=== PATIENT | male | born 1950 | race Caucasian/White ===

== ENCOUNTER 2018-01-19 13:38 | Outpatient (RCR) | payer MEDICARE, OTHER ==
[2018-01-19 13:56] LABS: BASOPHILS % (AUTO) 0 % (0-10); EOSINOPHILS # (AUTO) 0.1 10^3/uL (0.0-0.3); EOSINOPHILS % (AUTO) 1 % (0-10); HEMATOCRIT 43 % (40-54); HEMOGLOBIN 15.7 G/DL (13.3-17.7); LYMPHOCYTES # (AUTO) 2.1 X 10^3 (1.0-4.0); LYMPHOCYTES % (AUTO) 23 % (12-44); MEAN CORPUSCULAR HEMOGLOBIN 32 PG (25-34); MEAN CORPUSCULAR HGB CONC 37 G/DL (32-36); MEAN CORPUSCULAR VOLUME 86 FL (80-99); MEAN PLATELET VOLUME 9.5 FL (7.4-10.4); MONOCYTES % (AUTO) 11 % (0-12); NEUTROPHILS # (AUTO) 6.1 X 10^3 (1.8-7.8); NEUTROPHILS % (AUTO) 65 % (42-75); PLATELET COUNT 260 10^3/uL (130-400); RED BLOOD COUNT 4.99 10^6/uL (4.35-5.85); RED CELL DISTRIBUTION WIDTH 13.2 % (10.0-14.5); WHITE BLOOD COUNT 9.4 10^3/uL (4.3-11.0)
[2018-01-19 14:06] LABS: INR 1.6 (0.8-1.4)
[2018-01-19 14:14] LABS: ALANINE AMINOTRANSFERASE 16 U/L (0-55); ALBUMIN 4.3 GM/DL (3.2-4.5); ALKALINE PHOSPHATASE 68 U/L (40-136); BILIRUBIN,TOTAL 0.7 MG/DL (0.1-1.0); BUN/CREATININE RATIO 13; CALCIUM 9.5 MG/DL (8.5-10.1); CARBON DIOXIDE 28 MMOL/L (21-32); CHLORIDE 92 MMOL/L (98-107); CREATININE SERUM 0.85 MG/DL (0.60-1.30); GFR ESTIMATED > 60; GLUCOSE 88 MG/DL (70-105); POTASSIUM 4.3 MMOL/L (3.6-5.0); SODIUM 127 MMOL/L (135-145); TOTAL PROTEIN 7.3 GM/DL (6.4-8.2)
[2018-04-15] MEDS ORDERED: DILT180C54 PO (08:15)
[2018-04-15] MEDS ORDERED: LOSA100T28 PO (08:15)
[2018-04-15] MEDS ORDERED: METO-351 PO (08:15)
[2018-04-15] MEDS ORDERED: VARE1TAB22 PO (08:15)
[2018-04-15] MEDS ORDERED: CHLO25TA22 PO (08:15)
[2018-04-15] MEDS ORDERED: BIOT10005 PO (08:15)
[2018-04-15] MEDS ORDERED: OMEG-109 PO (08:15)
[2018-04-15] MEDS ORDERED: FINA5TAB6 PO (08:15)
[2018-04-15] MEDS ORDERED: APIX5TAB4 PO (08:15)
== END 2018-04-19 | disposition home or self-care (01) ==
LOC: CARD 13:38
PROVIDERS: ATTEND Physician Assistant
DX: I10 Essential (primary) hypertension (principal); I48.0 Paroxysmal atrial fibrillation; R55 Syncope and collapse; R07.89 Other chest pain
CPT/HCPCS: 36415; 80053; 84443; 85025; 85610; 93225; 93226

== ENCOUNTER → 2018-01-19 | Outpatient (CLI) | payer MEDICARE, OTHER | LOC: CARD 11:13 | PROVIDERS: ATTEND Family Medicine | DX: I48.91 Unspecified atrial fibrillation (principal); I48.92 Unspecified atrial flutter; I34.0 Nonrheumatic mitral (valve) insufficiency; I27.20 Pulmonary hypertension, unspecified | CPT/HCPCS: 93306 ==

== ENCOUNTER → 2018-01-28 | Outpatient (CLI) | payer MEDICARE, OTHER ==
[~2018-01-28] VITALS: Ht 177.8 cm; Wt 78.9 kg
[~2018-01-28] MED LIST: CATHETER FLUSH 10 ML SYR IV PRN; REGADENOSON 0.4 MG/5 ML SYR (LEXISCAN) IV ONE
[2018-01-28 08:23] VITALS: BP 159/101
--- NOTE | 2018-01-31 10:10 | STRESS TEST ---
DATE OF SERVICE: 01/28/2018 LEXISCAN MYOVIEW STRESS TEST REPORT REFERRING PHYSICIAN: Dr. Vizcarra. Baseline heart rate is 79, baseline blood pressure 159/101. Baseline EKG is atrial fibrillation with no ischemic changes. In summary, patient was injected with 10.16 mCi of technetium-99 Myoview and the resting images were obtained. Then, the patient received 0.4 mg of Lexiscan followed by 29.0 mCi of technetium-99 Myoview. Throughout the test, there were no EKG changes. The resting and stress images were reviewed and compared in the short axis, horizontal long axis, and vertical long axis views. Review of the images showed no significant ischemia or infarction. SSS is 1, SDS 1, TID value 1.0. On the gated images, the left ventricle appeared to be in normal size with normal contractility. Calculated ejection fraction 57%. CONCLUSION: 1. The patient tolerated Lexiscan well. 2. Baseline atrial fibrillation persisted throughout test. 3. No significant ischemia or infarction on SPECT images. 4. Normal left ventricular size with normal contractility. Calculated ejection fraction 57%, gated images are unreliable due to underlying atrial fibrillation. Job ID: [id number] DocumentID: [id number] Dictated Date: 01/31/2018 09:02:24 Hospitality Aide Date: 01/31/2018 10:09:25 Dictated By: CHRISTOPHE ANGULO MD
== END ==
LOC: CARD 06:39
PROVIDERS: ATTEND Physician Assistant
DX: R55 Syncope and collapse (principal); R07.89 Other chest pain; I10 Essential (primary) hypertension; I48.91 Unspecified atrial fibrillation
CPT/HCPCS: 78452; 93017

== ENCOUNTER 2018-02-04 21:00 | Outpatient (CLI) | payer MEDICARE, OTHER | END 2018-02-05 06:45 | disposition home or self-care (01) | LOC: SLEEP 21:00 | PROVIDERS: ATTEND Internal Medicine Cardiovascular Disease | DX: G47.33 Obstructive sleep apnea (adult) (pediatric) (principal); I10 Essential (primary) hypertension | CPT/HCPCS: 95810 ==

== ENCOUNTER 2018-04-15 07:06 | Day surgery (SDC) | payer MEDICARE, OTHER ==
[2018-04-15] VITALS (10 sets, daily range): BP systolic 117–163; BP diastolic 95–116
[~2018-04-15] VITALS: Ht 177.8 cm; Wt 80.7 kg
--- OUTSIDE RECORDS SUMMARY | 2018-04-15 07:10 | XMS REPORT | Continuity of Care Document ---
Author Author [facility] Organization [facility] Address Unknown Phone Unavailable Allergies Active Description Code Type Severity Reaction Onset Reported/Identified Relationship to Patient Clinical Status Yes No Known Medication Allergies Drug N/A N/A Yes Sulfa (Sulfonamide Antibiotics) [id number] Drug Allergy Unknown N/A 2017 Medications There is no data. Problems Date Dx Coded Attending Type Code Diagnosis Diagnosed By 01/28/2016 JENIFER TOPETE MD R Ot R59.1 02/10/2016 JENIFER TOPETE MD R Ot R59.1 11/12/2016 JENIFER TOPETE MD R Ot R59.1 GENERALIZED ENLARGED LYMPH NODES 11/13/2016 JENIFER TOPETE MD R Ot Z72.0 TOBACCO USE 11/13/2016 JENIFER TOPETE MD R Ot Z72.0 TOBACCO USE 11/18/2016 JENIFER TOPETE MD R Ot R59.1 GENERALIZED ENLARGED LYMPH NODES 11/18/2016 JENIFER TOPETE MD R Ot Z72.0 TOBACCO USE 11/25/2016 JENIFER TOPETE MD R Ot Z72.0 TOBACCO USE 12/23/2016 JENIFER TOPETE MD R Ot R59.1 GENERALIZED ENLARGED LYMPH NODES 12/25/2016 JENIFER TOPETE MD R Ot R59.1 GENERALIZED ENLARGED LYMPH NODES 12/25/2016 JENIFER TOPETE MD R Ot Z72.0 TOBACCO USE 01/14/2017 JENIFER TOPETE MD R Ot Z72.0 TOBACCO USE 01/19/2018 JENIFER TOPETE MD R Ot R59.1 GENERALIZED ENLARGED LYMPH NODES 01/19/2018 JENIFER TOPETE MD R Ot Z72.0 TOBACCO USE 01/20/2018 JENIFER TOPETE MD R Ot I27.20 PULMONARY HYPERTENSION, UNSPECIFIED 01/20/2018 JENIFER TOPETE MD R Ot I34.0 NONRHEUMATIC MITRAL (VALVE) INSUFFICIENC 01/20/2018 YOSELYN MOORE, JENIFER R Ot I48.91 UNSPECIFIED ATRIAL FIBRILLATION 01/20/2018 JENIFER TOPETE MD R Ot I48.92 UNSPECIFIED ATRIAL FLUTTER 01/20/2018 KEV MOORE, CHRISTOPHE Olmos Ot G47.33 OBSTRUCTIVE SLEEP APNEA (ADULT) (PEDIATR 01/28/2018 KEV MOORE, CHRISTOPHE Olmos Ot G47.33 OBSTRUCTIVE SLEEP APNEA (ADULT) (PEDIATR 01/31/2018 RON MARADIAGA K Ot I10 ESSENTIAL (PRIMARY) HYPERTENSION 01/31/2018 RON MARADIAGA K Ot I48.91 UNSPECIFIED ATRIAL FIBRILLATION 01/31/2018 RON MARADIAGA Ot R07.89 OTHER CHEST PAIN 01/31/2018 RON MARADIAGA Ot R55 SYNCOPE AND COLLAPSE 02/04/2018 KEV MOORE, CHRISTOPHE Olmos Ot G47.33 OBSTRUCTIVE SLEEP APNEA (ADULT) (PEDIATR 02/07/2018 KEV MOORE, CHRISTOPHE Olmos Ot G47.33 OBSTRUCTIVE SLEEP APNEA (ADULT) (PEDIATR 02/07/2018 KEV MOORE, CHRISTOPHE J Ot I10 ESSENTIAL (PRIMARY) HYPERTENSION 02/09/2018 YOSELYN MOORE, JENIFER R Ot I27.20 PULMONARY HYPERTENSION, UNSPECIFIED 02/09/2018 YOSELYN MOORE, JENIFER R Ot I34.0 NONRHEUMATIC MITRAL (VALVE) INSUFFICIENC 02/09/2018 JENIFER TOPETE MD R Ot I48.91 UNSPECIFIED ATRIAL FIBRILLATION 02/09/2018 JENIFER TOPETE MD R Ot I48.92 UNSPECIFIED ATRIAL FLUTTER 02/17/2018 RON MARADIAGA Ot I10 ESSENTIAL (PRIMARY) HYPERTENSION 02/17/2018 RON MARADIAGA K Ot I48.91 UNSPECIFIED ATRIAL FIBRILLATION 02/17/2018 RON MARADIAGA Ot R07.89 OTHER CHEST PAIN 02/17/2018 RON MARADIAGA Ot R55 SYNCOPE AND COLLAPSE 03/10/2018 RON MARADIAGA Ot I10 ESSENTIAL (PRIMARY) HYPERTENSION 03/10/2018 RON MARADIAGA Ot I48.0 PAROXYSMAL ATRIAL FIBRILLATION 03/10/2018 RON MARADIAGA Ot R07.89 OTHER CHEST PAIN 03/10/2018 RON MARADIAGA Ot R55 SYNCOPE AND COLLAPSE Procedures There is no data. Results Test Result Range Prostate specific ag [mass/volume] in serum or plasma - 11/12/16 12:23 Prostate specific ag [mass/volume] in serum or plasma 0.62 % 0.00-4.00 Encounters ACCT No. Visit Date/Time Discharge Status Pt. Type Provider Facility Loc./Unit Complaint [id number] 02/04/2018 21:00:00 02/05/2018 06:45:00 DIS Outpatient CHRISTOPHE ANGULO MD [facility] SLEEP G47.33 OBSTRUCTIVE SLEEP APNEA [id number] 01/28/2018 06:39:00 01/28/2018 23:59:59 CLS Outpatient RON MARADIAGA [facility] CARD SYNCOPE R55 [id number] 01/19/2018 13:38:00 01/19/2018 23:59:59 CLS Outpatient RON MARADIAGA [facility] CARD SYNCOPE R55 [id number] 01/19/2018 11:13:00 01/19/2018 23:59:59 CLS Outpatient JENIFER TOPETE MD [facility] CARD ATRIAL FIBRILATION AND FLUTTER [id number] 11/12/2016 11:41:00 11/12/2016 23:59:59 CLS Outpatient JENIFER TOPETE MD [facility] RAD TOBACCO USE,BENIGN HYPERTROPHY [id number] 01/27/2016 11:55:00 01/27/2016 23:59:59 CLS Outpatient JENIFER TOPETE MD [facility] RAD ADENOPAHTY LT NECK [id number] 04/15/2018 09:30:00 PEN Preadmit CHRISTOPHE ANGULO MD [facility] CATH AFIB [id number] 01/18/2014 11:07:11 01/18/2014 23:59:59 CLS Outpatient VAIBHAV JEFFRIES [id number] 12/18/2013 16:12:15 Document Registration [id number] 03/04/2018 20:03:44 ACT Unknown [id number] 01/07/2018 20:20:55 01/07/2018 23:59:59 DIS Outpatient WALTER SPARROW [facility] [id number] 01/07/2018 18:43:00 01/07/2018 23:59:59 ACT V MARCELINO BELTRE [facility] ed visit [id number] 01/07/2018 03:37:18 01/07/2018 23:59:59 DIS Outpatient MIKAL MAHONEY [facility]
[2018-04-15] MEDS ORDERED: LIDOCAINE 2% VISCOUS 15 ML UDC ONE (07:14)
[2018-04-15] MEDS ORDERED: NS IV 1000 ML 1,000 ML ONE (07:14)
--- NOTE | 2018-04-15 07:41 | Diagnostic Imaging Report ---
EXAM: CHEST 1 VIEW, AP/PA ONLY INDICATION: af htn sob COMPARISON: Chest radiograph 11/12/2016. FINDINGS: Normal heart size and central pulmonary vascularity. Calcified aorta. No focal pulmonary opacity, pleural effusion or pneumothorax. Osseous structures are unremarkable. IMPRESSION: No acute cardiopulmonary findings. Dictated by: Dictated on workstation # [id number]
[2018-04-15 07:50] LABS: HEMOGLOBIN 15.1 G/DL (13.3-17.7); MEAN PLATELET VOLUME 9.5 FL (7.4-10.4); RED BLOOD COUNT 4.82 10^6/uL (4.35-5.85); RED CELL DISTRIBUTION WIDTH 13.2 % (10.0-14.5); WHITE BLOOD COUNT 8.4 10^3/uL (4.3-11.0)
[2018-04-15 08:05] LABS: INR 1.1 (0.8-1.4); PROTHROMBIN TIME PATIENT 13.7 SEC (12.2-14.7)
[2018-04-15 08:12] LABS: ALANINE AMINOTRANSFERASE 14 U/L (0-55); ALBUMIN 4.2 GM/DL (3.2-4.5); ALKALINE PHOSPHATASE 79 U/L (40-136); BILIRUBIN,TOTAL 0.6 MG/DL (0.1-1.0); BUN/CREATININE RATIO 15; CALCIUM 9.3 MG/DL (8.5-10.1); CARBON DIOXIDE 26 MMOL/L (21-32); CHLORIDE 100 MMOL/L (98-107); CREATININE SERUM 0.81 MG/DL (0.60-1.30); GFR ESTIMATED > 60; GLUCOSE 91 MG/DL (70-105); POTASSIUM 4.5 MMOL/L (3.6-5.0); SODIUM 135 MMOL/L (135-145)
[2018-04-15] MEDS ORDERED: BIOT10005 PO (08:15)
[2018-04-15] MEDS ORDERED: OMEG-109 PO (08:15)
[2018-04-15] MEDS ORDERED: DILT180C54 PO (08:15)
[2018-04-15] MEDS ORDERED: METO-351 PO (08:15)
[2018-04-15] MEDS ORDERED: CHLO25TA22 PO (08:15)
[2018-04-15] MEDS ORDERED: FINA5TAB6 PO (08:15)
[2018-04-15] MEDS ORDERED: APIX5TAB4 PO (08:15)
[2018-04-15] MEDS ORDERED: VARE1TAB22 PO (08:15)
[2018-04-15] MEDS ORDERED: LOSA100T28 PO (08:15)
[2018-04-15] MEDS ORDERED: MIDAZOLAM 2 MG/2 ML (VERSED) VIAL ONE ×2 (08:40→08:46)
[2018-04-15] MEDS ORDERED: proPOfol 200 MG/20 ML (DIPRIVAN) VIAL IV ONE ×2 (08:40→08:46)
--- NOTE | 2018-04-15 09:03 | Cardiac Procedure Note-CS/ASA ---
Pre-Procedure Note Pre-Op Procedure Note H&P Reviewed The H&P was reviewed, patient examined and no changes noted. Date H&P Reviewed: Apr 15, 2018 Time H&P Reviewed: 09:03 Conscious Sedation Pre-Proced Time Reviewed: 09:03 ASA Class: 3 Airway Mallampati Classification: (north fork appropriate class) I. II. III, IV Lungs Heart ASA score ASA 1: a normal healthy patient ASA 2: a patient with a mild systemic disease (mid diabetes, controlled hypertension, obesity X ASA 3: a patient with a severe systemic disease that limits activity (angina , COPD, prior Myocardial infarction) ASA 4: a patient with an incapacitating disease that is a constant threat to life (CHF, renal failure) ASA 5: a moribund patient not expected to survive 24 hrs. (ruptured aneurysm) ASA 6: a declared brain patient whose organs are being harvested. For emergent operations, add the letter E after the classification Grade 3 Sedation Plan: Analgesia, Amnesia, Plan communicated to team members, Discussed options with patient/fam, Discussed risks with patient/fam Note The patient is an appropriate candidate to undergo the planned procedure, sedation, and anesthesia. The patient immediately re-assessed prior to indication. CHRISTOPHE ANGULO MD Apr 15, 2018 09:03
--- NOTE | 2018-04-15 09:07 | Cardioversion ---
Cardioversion PROCEDURE PHYSICIAN: Christophe Bautista DATE OF PROCEDURE: 04/15/18 DIRECT EXTERNAL ELECTRICAL CARDIOVERSION: Indications: Atrial Fibrillation Preoperative diagnoses: Atrial Fibrillation Postoperative diagnosis: Sinus rhythm, Successful Electrical Cardioversion History: Anesthesia: By Anesthesia services Complications: None Procedure Details: The patient was brought the cath lab nurse after informed consent was taken, all the risks and complications were explained including the risk of stroke. Electrical cardioversion was carried out with anesthesia support with propofol. 200 joules of synchronized shock was delivered through external patches which promptly restored sinus rhythm. The patient tolerated the procedure well. Conclusions: Successful electrical cardioversion Final Diagnosis: Paroxysmal atrial fibrillation Syncope Hypertension CHRISTOPHE BAUTISTA MD Apr 15, 2018 09:07
[2018-04-15] MEDS ORDERED: LIDOCAINE 2% VISCOUS 15 ML UDC PO ONE (09:15)
--- NOTE | 2018-04-15 09:15 | Anesthesia-Procedure Note ---
Procedures/Interventions Procedure Start/Stop/Diagnosis Date of Procedure: Apr 15, 2018 Start Time: 08:48 Referring Physician: Dr Bautista Preprocedural Diagnosis: A-fib Brief History Anesthesia Note ([id number]) Called to labor mediator for sedation for a SHAYNA/Cardioversion. Brief history obtained from the patient. Versed 2 mg IV and Propofol 150 mg IV in divided doses given for sedation. + EtCO2 throughout the procedure. Pt tolerated the procedure well and returned to sinus rhythm after cardioversion times one. Stop Time: 08:58 Postprocedural Diagnosis: Sinus Rhythm SHAYNA/Cardioversion Anesthesia Type: MAC ASA Class: 3 Medications Versed 2 mg IV, Propofol 150 mg IV Monitors and Equipment: BP Cuff - Right (LE), Continuous EKG, End Tidal CO2, IV , Pulse Oximeter, V Lead EKG QUINN NOVOA DO Apr 15, 2018 09:15
--- NOTE | 2018-04-15 09:18 | Anesthesia-General Post-Op ---
MAC Patient Condition Mental Status/LOC: Same as Preop Cardiovascular: Satisfactory Nausea/Vomiting: Absent Respiratory: Satisfactory Pain: Controlled Complications: Absent Post Op Complications Complications None Follow Up Care/Instructions Patient Instructions None needed. Anesthesiology Discharge Order Discharge Order Patient is doing well, no complaints, stable vital signs, no apparent adverse anesthesia problems. QUINN NOVOA DO Apr 15, 2018 09:18
== END 2018-04-15 12:00 | disposition home or self-care (01) ==
LOC: CATH 07:06 → SURG 10:07 → CATH 12:00
PROVIDERS: ATTEND Internal Medicine Cardiovascular Disease
DX: I48.0 Paroxysmal atrial fibrillation (principal); R55 Syncope and collapse; I10 Essential (primary) hypertension; E78.5 Hyperlipidemia, unspecified; F17.210 Nicotine dependence, cigarettes, uncomplicated; M79.604 Pain in right leg; M79.605 Pain in left leg; G47.10 Hypersomnia, unspecified; R06.83 Snoring
CPT/HCPCS: 36415; 71045; 80053; 85027; 85610; 85730; 87081; 92960; 93005; 93320; 93325

== ENCOUNTER → 2018-09-27 | Outpatient (CLI) | payer MEDICARE, OTHER ==
[~2018-09-27] MED LIST changes: +APIX5TAB4 PO; +BIOT10005 PO; -CATHETER FLUSH 10 ML SYR IV PRN; +CHLO25TA22 PO; +DILT180C54 PO; +FINA5TAB6 PO; +LOSA100T8 PO; +METO-351 PO; +OMEG-109 PO; -REGADENOSON 0.4 MG/5 ML SYR (LEXISCAN) IV ONE; +VARE1TAB22 PO
== END ==
LOC: RT 09:42
PROVIDERS: ATTEND Nurse Practitioner Family
DX: I48.0 Paroxysmal atrial fibrillation (principal); R06.09 Other forms of dyspnea; G47.10 Hypersomnia, unspecified; R00.0 Tachycardia, unspecified; F17.201 Nicotine dependence, unspecified, in remission

== ENCOUNTER → 2018-10-05 | Outpatient (CLI) | payer MEDICARE, OTHER ==
[~2018-10-05] MED LIST changes: +RT-ALBUTEROL SULF 2.5 MG/3 ML PRE-MIX VIAL INH ONE
== END ==
LOC: RT 08:14
PROVIDERS: ATTEND Nurse Practitioner Family
DX: R06.09 Other forms of dyspnea (principal); I48.91 Unspecified atrial fibrillation; G47.10 Hypersomnia, unspecified; R00.0 Tachycardia, unspecified; F17.201 Nicotine dependence, unspecified, in remission
CPT/HCPCS: 94060; 94640; 94726; 94729

== ENCOUNTER 2018-10-25 20:45 | Outpatient (CLI) | payer MEDICARE, OTHER ==
[~2018-10-25 20:45] MED LIST changes: -RT-ALBUTEROL SULF 2.5 MG/3 ML PRE-MIX VIAL INH ONE
== END 2018-10-26 06:10 | disposition home or self-care (01) ==
LOC: RAD 20:45
PROVIDERS: ATTEND Nurse Practitioner Family
DX: G47.10 Hypersomnia, unspecified (principal); I48.91 Unspecified atrial fibrillation; F17.201 Nicotine dependence, unspecified, in remission
CPT/HCPCS: 95810

== ENCOUNTER → 2018-11-01 | Outpatient (CLI) | payer MEDICARE, OTHER ==
--- NOTE | 2018-11-01 14:13 | Diagnostic Imaging Report ---
PROCEDURE: CT neck soft tissue without contrast. TECHNIQUE: Multiple contiguous axial images were obtained through the neck without the use of intravenous contrast. INDICATION: Mass on the left side of the neck. Correlation is made with prior CT neck study from 01/27/2016. Evaluation is limited without intravenous contrast. A BB marker was placed at the area of palpable abnormality in the left neck. This is at the level of the lower pole of the parotid gland. No discrete mass is identified at this location. Bilateral parotid glands appear to be symmetric. Bilateral submandibular glands are unremarkable. Posterior nasopharynx and oropharynx are unremarkable. Parapharyngeal fat planes are preserved. No definite cervical lymphadenopathy is seen. No fluid collection is identified. No thyroid mass is detected. IMPRESSION: Unremarkable noncontrast CT of the neck. No discrete mass is detected. Dictated by: Dictated on workstation # [id number]
== END ==
LOC: RAD 12:05
PROVIDERS: ATTEND Family Medicine
DX: R22.1 Localized swelling, mass and lump, neck (principal)
CPT/HCPCS: 70490

== ENCOUNTER → 2019-09-25 | Outpatient (CLI) | payer MEDICARE, OTHER ==
[~2019-09-25] VITALS: Ht 175 cm; Wt 85.0 kg
[~2019-09-25] MED LIST changes: +CATHETER FLUSH 10 ML SYR IV PRN; +LOSA100T57 PO; -LOSA100T8 PO
[2019-09-25 09:34] VITALS: BP 129/83
--- NOTE | 2019-09-25 14:43 | STRESS TEST ---
DATE OF SERVICE: 09/25/2019 EXERCISE MYOVIEW STRESS TEST REPORT REFERRING PHYSICIAN: Dr. Vizcarra. Baseline heart rate is 47, baseline blood pressure 129/83. Baseline EKG is sinus rhythm with no ischemic changes. In summary, the patient was injected with 10.67 mCi of technetium-99 Myoview and the resting images were obtained. Then, the patient started exercising with a baseline heart rate, blood pressure and EKG mentioned above. The patient was able to exercise for 7 minutes and 30 seconds on standard Tee protocol. With peak exercise level, EKG was showing [address] depression in II, III, aVF, subtle ST elevation in AVR. Blood pressure at peak was 239/110. During recovery, heart rate and blood pressure returned to baseline. EKG returned to baseline. The resting and stress images were reviewed and compared in the short axis, horizontal long axis, and vertical long axis views. Review of the images showed diaphragmatic attenuation with mild decreased uptake at the inferior wall with no significant reversibility. SSS is 0. SDS is 0. TID value 1.0. On the gated images, the left ventricle appeared to be in normal size with normal contractility. Calculated ejection fraction 54%. CONCLUSION: 1. Good exercise tolerance for a total of 7 minutes 30 seconds on standard Tee protocol, total of 9.1 METS achieving 89% of maximum expected heart rate. 2. Severe hypertensive response to exercise with peak blood pressure 239/110. Returned to baseline during recovery. 3. Nondiagnostic EKG changes with exercise returned to baseline during recovery. 4. Diaphragmatic attenuation with typical male pattern with no significant ischemia or infarction on SPECT images. 5. Normal left ventricular size with normal contractility. Calculated ejection fraction 54%. Job ID: [id number] DocumentID: [id number] Dictated Date: 09/25/2019 11:48:27 Tanning Drum Operator Date: 09/25/2019 14:42:27 Dictated By: CHRISTOPHE ANGULO MD
== END ==
LOC: CARD 08:03
PROVIDERS: ATTEND Internal Medicine Cardiovascular Disease
DX: I08.3 Combined rheumatic disorders of mitral, aortic and tricuspid valves (principal); I10 Essential (primary) hypertension; I48.0 Paroxysmal atrial fibrillation; E78.2 Mixed hyperlipidemia
CPT/HCPCS: 78452; 93017; 93306

== ENCOUNTER → 2019-10-10 | Outpatient (CLI) | payer MEDICARE, OTHER ==
[~2019-10-10] MED LIST changes: +HOLD METFORMIN - RECEIVED CONTRAST 20 ML VIAL IV SCH; +IOHEXOL 350 MG/ML 100 ML (OMNIPAQUE 350) VIAL IV ONE; +NS 100 ML (IVPB) BAG IV ONE
[2019-10-10 08:54] LABS: BUN/CREATININE RATIO 13; CREATININE SERUM 1.12 MG/DL (0.60-1.30); GFR ESTIMATED > 60
--- NOTE | 2019-10-10 10:32 | Diagnostic Imaging Report ---
PROCEDURE: CT angiography of the chest with contrast. TECHNIQUE: Multiple contiguous axial images were obtained through the chest after uneventful bolus administration of intravenous contrast. 3D reconstructed CTA MIP acquisitions were also performed. Auto Exposure Controls were utilized during the CT exam to meet ALARA standards for radiation dose reduction. INDICATION: Dilated thoracic aorta. COMPARISON: There are no prior CTA chest examinations available for comparison. The plain film examination of the chest performed on 04/15/2018 failed to show any sign of an acute cardiopulmonary abnormality. FINDINGS: On this exam, the heart size is within normal limits. There are coronary artery calcifications evident. The ascending aorta is slightly dilated measuring 4.1 x 4.3 cm maximum AP and transverse diameters. There is no sign of a dissection of the aorta. The pulmonary arteries were not well opacified and consequently difficult to assess. There is no obvious defect to suggest pulmonary embolus. The lungs are generally clear. There is no sign of failure, pneumonia or pleural effusion to indicate an acute abnormality. There is no mediastinal or hilar adenopathy. The thyroid gland was not visualized in its entirety. Where visualized, it is unremarkable. The sections through the upper abdomen failed to show any sign of an acute abnormality. There is at least moderate degenerative disc and bony disease involving the mid and lower thoracic spine. There is no sign of an acute bony abnormality. IMPRESSION: 1. There is mild aneurysmal dilatation of the ascending aorta. There is no acute abnormality of the aorta. 2. The heart size is within normal limits. There are coronary artery calcifications evident. 3. There is no acute cardiopulmonary abnormality identified. 4. The pulmonary arteries were not well opacified and consequently difficult to assess for a pulmonary embolus. Dictated by: Dictated on workstation # [id number]
== END ==
LOC: RAD 08:13
PROVIDERS: ATTEND Internal Medicine Cardiovascular Disease
DX: I71.2 Thoracic aortic aneurysm, without rupture (principal); I77.810 Thoracic aortic ectasia
CPT/HCPCS: 36415; 71275; 82565; 84520

== ENCOUNTER → 2020-10-14 | Outpatient (CLI) | payer MEDICARE, OTHER ==
[2020-10-14 12:53] LABS: CREATININE SERUM 0.84 MG/DL (0.60-1.30); GFR ESTIMATED > 60
--- NOTE | 2020-10-14 13:34 | Diagnostic Imaging Report ---
PROCEDURE: CT angiography of the chest with contrast. TECHNIQUE: Multiple contiguous axial images were obtained through the chest after uneventful bolus administration of intravenous contrast. 3D reconstructed CTA MIP acquisitions were also performed. Auto Exposure Controls were utilized during the CT exam to meet ALARA standards for radiation dose reduction. INDICATION: Ascending aorta dilatation, follow-up. COMPARISON: Comparison is made with prior CT angiogram of the chest from 10/10/2019. FINDINGS: The ascending thoracic aorta measures approximate 4.1 cm AP x 4.4 cm transverse compared with 4.1 cm AP x 4.3 cm transverse on prior exam. Aortic arch and descending thoracic aorta are normal in caliber. There are atherosclerotic changes present. No dissection is seen. No axillary, hilar or mediastinal lymphadenopathy is detected. No pericardial or pleural fluid is identified. No pulmonary infiltrates, nodules or masses are identified. Upper abdomen is unremarkable. Bony structures are nonacute. IMPRESSION: Stable CT angiogram of the chest when compared with examination from 10/10/2019. The ascending thoracic aorta is stable in size. No dissection is identified. Dictated by: Dictated on workstation # [id number]
== END ==
LOC: RAD 12:21
PROVIDERS: ATTEND Nurse Practitioner
DX: I77.810 Thoracic aortic ectasia (principal)
CPT/HCPCS: 36415; 71275; 82565

== ENCOUNTER → 2020-10-14 | Outpatient (CLI) | payer MEDICARE, OTHER ==
[~2020-10-14] MED LIST changes: -CATHETER FLUSH 10 ML SYR IV PRN; -HOLD METFORMIN - RECEIVED CONTRAST 20 ML VIAL IV SCH; -IOHEXOL 350 MG/ML 100 ML (OMNIPAQUE 350) VIAL IV ONE; -NS 100 ML (IVPB) BAG IV ONE
--- NOTE | 2020-10-14 15:02 | Diagnostic Imaging Report ---
CT CHEST SCREENING WO TECHNIQUE: Low-dose unenhanced CT of the chest was performed according to the screening protocol. Coronal MIP and sagittal MPR reformats are created. Automatic exposure controls were utilized to keep dose as low as reasonably achievable. INDICATION: 40-crcn-ygrb history of smoking. Quit smoking 15 years ago. COMPARISON: CTA chest from 10/10/2019. FINDINGS: Pulmonary findings: No endoluminal nodule within the trachea. No pulmonary mass or consolidation. No bronchiectasis or honeycombing. There is a 3 mm average lentiform nodule along the left major fissure that is stable and due to benign intrapulmonary lymph node. No pulmonary nodule that would be suspicious for clinically active lung cancer. Extrapulmonary findings: No axillary lymphadenopathy. No mediastinal, hilar or juxtaphrenic lymphadenopathy. Heart is normal in size. Ectatic ascending aorta is better detailed on CTA chest performed concurrently. No worrisome focal osseous lesions. IMPRESSION: 1. No change to indicate clinically active lung cancer. 2. Please see CTA report for details of the ascending aortic aneurysm dilatation. Lung-RADS category: 1 - Negative Recommendations: Continued annual screening with low-dose CT in 12 months. Dictated by: Dictated on workstation # [id number]
== END ==
LOC: RAD 10:59
PROVIDERS: ATTEND Nurse Practitioner Family
DX: Z12.2 Encounter for screening for malignant neoplasm of respiratory organs (principal); Z87.891 Personal history of nicotine dependence

== ENCOUNTER → 2021-01-15 | Day surgery (SDC) | payer MEDICARE, OTHER ==
[~2021-01-15] VITALS: Ht 177 cm; Wt 85.0 kg
[~2021-01-15] MED LIST changes: +LIDOCAINE 1% INJ 20 ML 20 ML VIAL INJ ONE; +LIDOCAINE 1% INJ 20 ML 20 ML VIAL ONE
[2021-01-15 09:44] VITALS: BP 174/88
--- NOTE | 2021-01-15 10:06 | Implantation of Loop Monitor ---
Implant of Loop Monitior IMPLANTATION OF LOOP MONITOR REPORT DATE OF PROCEDURE: 01/15/21 PREOP DIAGNOSIS: Paroxysmal atrial fibrillation POSTOP DIAGNOSIS: Paroxysmal atrial fibrillation PROCEDURE DETAILS: The patient is a 70 male with history of paroxysmal atrial fibrillation requiring long-term surveillance. Therefore implantable loop recorder was discussed and agreed with the patient. Informed consent was taken. All risks and complications were discussed at length. The patient was draped and prepped in the usual sterile fashion. Local anesthesia was lidocaine, which was given in the substernal area close to the 4th intercostal space. Loop monitor [employer] with serial number [id number] was implanted according to the protocol. Steri- Strips were placed at the end of the procedure. There were no complications and the patient tolerated the procedure well. The device was interrogated with a voltage of. ANESTHESIA: Local anesthesia with lidocaine. COMPLICATIONS: None CONTRAST/FLUOROSCOPY: None CONCLUSION: Successful implantation of a loop monitor with no complication FINAL DIAGNOSIS: Paroxysmal atrial fibrillation Syncope Palpitation Hypertension CHRISTOPHE ANGULO MD Jan 15, 2021 10:06 am
== END ==
LOC: CATH 10:30
PROVIDERS: ATTEND Internal Medicine Cardiovascular Disease
DX: I48.0 Paroxysmal atrial fibrillation (principal); I10 Essential (primary) hypertension; E78.2 Mixed hyperlipidemia; G47.10 Hypersomnia, unspecified; G47.33 Obstructive sleep apnea (adult) (pediatric); J30.9 Allergic rhinitis, unspecified; I65.23 Occlusion and stenosis of bilateral carotid arteries; Z79.51 Long term (current) use of inhaled steroids; Z79.01 Long term (current) use of anticoagulants; Z88.2 Allergy status to sulfonamides; Z87.891 Personal history of nicotine dependence; Z83.3 Family history of diabetes mellitus
CPT/HCPCS: 33285; C1764

== ENCOUNTER 2021-03-05 09:44 | Day surgery (SDC) | payer MEDICARE, OTHER ==
[~2021-03-05] VITALS: Ht 179 cm; Wt 84.0 kg
[2021-03-05] VITALS (8 sets, daily range): BP systolic 124–181; BP diastolic 86–100
[~2021-03-05 09:44] MED LIST changes: -LIDOCAINE 1% INJ 20 ML 20 ML VIAL INJ ONE; -LIDOCAINE 1% INJ 20 ML 20 ML VIAL ONE
[2021-03-05] MEDS ORDERED: NS IV 1000 ML 1,000 ML ONE (09:58)
[2021-03-05] MEDS ORDERED: HEParin (CATH LAB) 1,000 ML IV ONE (09:58)
[2021-03-05] MEDS ORDERED: LIDOCAINE 1% INJ 20 ML 20 ML VIAL ONE (09:58)
[2021-03-05] MEDS ORDERED: ceFAZolin INJECTION 1,000 MG ONE (09:58)
[2021-03-05] MEDS ORDERED: ceFAZolin INJECTION 1,000 MG VIAL IV ONE (10:00)
[2021-03-05] MEDS ORDERED: NS IV 1000 ML 1,000 ML IV ONE (10:00)
[2021-03-05] MEDS ORDERED: BACITRACIN INJECTION 50,000 UNIT, SODIUM CHLORIDE 0.9% IRRIGATIO 500 ML IR ONE ×2 (10:00)
[2021-03-05 10:27] LABS: HEMOGLOBIN 12.8 g/dL (13.3-17.7); MEAN PLATELET VOLUME 9.9 fL (9.0-12.2); WHITE BLOOD COUNT 5.8 10^3/uL (4.3-11.0)
[2021-03-05] MEDS ORDERED: NS (IVPB) 50 ML ONE (10:35)
[2021-03-05 10:40] LABS: PROTHROMBIN TIME PATIENT 13.2 SEC (12.2-14.7)
[2021-03-05 10:48] LABS: ALANINE AMINOTRANSFERASE 18 U/L (0-55); ALBUMIN 4.4 GM/DL (3.2-4.5); ALKALINE PHOSPHATASE 69 U/L (40-136); BILIRUBIN,TOTAL 0.6 MG/DL (0.1-1.0); BUN/CREATININE RATIO 20; CALCIUM 9.1 MG/DL (8.5-10.1); CARBON DIOXIDE 24 MMOL/L (21-32); CHLORIDE 98 MMOL/L (98-107); CHOLESTEROL 125 MG/DL (< 200); CREATININE SERUM 0.87 MG/DL (0.60-1.30); GFR ESTIMATED > 60; GLUCOSE 106 MG/DL (70-105); HDL CHOLESTEROL 55 MG/DL (40-60); POTASSIUM 3.8 MMOL/L (3.6-5.0); SODIUM 135 MMOL/L (135-145); TOTAL PROTEIN 7.1 GM/DL (6.4-8.2); TRIGLYCERIDES 39 MG/DL (<150); VLDL CHOLESTEROL 8 MG/DL (5-40)
[2021-03-05] MEDS ORDERED: OMEG-86 PO (10:49)
[2021-03-05] MEDS ORDERED: MONT10TA32 PO (10:49)
[2021-03-05] MEDS ORDERED: CETI10TA17 PO (10:49)
[2021-03-05] MEDS ORDERED: FLEC100T PO (10:49)
[2021-03-05] MEDS ORDERED: ALBU18HF2 INH (10:49)
[2021-03-05] MEDS ORDERED: ROSU5TAB13 PO (10:49)
[2021-03-05] MEDS ORDERED: APIX5TAB PO (10:49)
[2021-03-05] MEDS ORDERED: FLUT9.9S NS (10:49)
[2021-03-05] MEDS ORDERED: BIOT50002 SL (10:49)
--- NOTE | 2021-03-05 10:51 | Diagnostic Imaging Report ---
HISTORY: Preoperative evaluation of cardiac and pulmonary structures prior to administration of anesthesia. Pacemaker. COMPARISON: 04/15/2018. TECHNIQUE: Frontal view of the chest. FINDINGS: Lung volumes are normal. No focal consolidation is seen. There is no pleural effusion or pneumothorax. court recording monitor device is noted. The heart is normal in size. IMPRESSION: No acute pulmonary abnormality. Dictated by: Dictated on workstation # [id number]
[2021-03-05] MEDS ORDERED: fentaNYL INJ 100 MCG/2 ML AMP ONE ×2 (11:56→12:31)
[2021-03-05] MEDS ORDERED: MIDAZOLAM 5 MG/5 ML (VERSED) VIAL ONE ×2 (11:56→12:30)
[2021-03-05] MEDS ORDERED: NS IV 1000 ML 1,000 ML IV SCH (13:30)
[2021-03-05] MEDS ORDERED: PATIENT MAY USE OWN MEDS, ALL PO SCH (13:30)
--- NOTE | 2021-03-05 13:32 | Conscious Sedation/ASA ---
Conscious Sedation Pre-Proced Time 11:00 ASA Score 3 For ASA 3 and 4: Consider anesthesia and medical clearance. Also, for patients with a history of failed moderate sedation consider anesthesia. Airway Lungs Heart ASA score ASA 1: a normal healthy patient ASA 2: a patient with a mild systemic disease (mid diabetes, controlled hypertension, obesity x ASA 3: a patient with a severe systemic disease that limits activity (angina, COPD, prior Myocardial infarction) ASA 4: a patient with an incapacitating disease that is a constant threat to life (CHF, renal failure) ASA 5: a moribund patient not expected to survive 24 hrs. (ruptured aneurysm) ASA 6: a declared brain- patient whose organs are being harvested. For emergent operations, add the letter E after the classification Mallampati Classification Grade 3 Sedation Plan Analgesia, Amnesia, Plan communicated to team members, Discussed options with patient/fam, Discussed risks with patient/fam The patient is an appropriate candidate to undergo the planned procedure, sedation, and anesthesia. The patient immediately re-assessed prior to indication. CHRISTOPHE ANGULO MD Mar 05, 2021 13:32
--- NOTE | 2021-03-05 13:37 | Permanent Pacemaker Implant ---
Dual Chamber Pacemaker Implant PROCEDURE PHYSICIAN: Christophe Bautista DUAL CHAMBER PACEMAKER IMPLANTATION: DATE OF PROCEDURE: 03/05/21 INDICATION: Sinus node dysfunction/ tachybradycardia episode PREOPERATIVE DIAGNOSIS: Sinus node dysfunction, paroxysmal atrial fibrillation POSTOPERATIVE DIAGNOSIS: Sinus node dysfunction, paroxysmal atrial fibrillation HISTORY: Dual-chamber permanent pacemaker was recommended. PROCEDURE PERFORMED: 1. Dual-chamber permanent pacemaker implantation. 2. Fluoroscopy. 3. Central venous access. ANESTHESIA: Local anesthesia, conscious sedation. COMPLICATIONS: None. ESTIMATED BLOOD LOSS:20 mL. SPECIMENS: None. ORAL ANTICOAGULATION: None. FLUOROSCOPY TIME: FLUOROSCOPY DOSE: CONTRAST DOSE: PROCEDURE DETAILS: The patient is a 70 male and after all of the patients questions were answered, the patient was brought to the cardiac cath rn. The patient's left chest was prepped and draped in sterile fashion. A 2 inch horizontal incision was made 1 cm below the clavicle and dissection carried down to the pectoralis fascia. Using the modified Seldinger technique and under fluoroscopy guidance, the anterior aspect of the left axillary vein was accessed 2 times. The J wires were secured to the drapes with a mosquito clamp. A 7-Khmer sheath was introduced over one of the J-wires. The RV lead was then inserted. The RV lead was directed across the tricuspid valve to the apical septal portion of the right ventricle. The position was checked in BELARUSIAN and RICHARDSON views. The screw was deployed and the lead connected to the band reamer machine operator. Close sensing and pacing thresholds were obtained. Diaphragmatic pacing was ruled out. The lead was secured with 2-0 silk ties to the underlying muscle and fascia. Next, a 7-Khmer sheath was introduced through the remaining J-wire. An atrial lead was then introduced and guided to the level of the right appendage. The screw was deployed and the lead was connected to the interrogator. Good sensing and pacing thresholds were obtained. Diaphragmatic pacing was ruled out. The leads were secured with 2-0 silk ties to the underlying muscle and fascia. The leads were connected to the device in a hermetic fashion. The device and leads were placed in the pocket. Aggressive irrigation with saline solution was done. The device was secured to the underlying muscle and fascia with a 2-0 silk tie. interrogation of the device revealed good integrity of all the leads and good connections. The wound was then closed using 2 layers. The first layer was interrupted 2-0 absorbable Vicryl suture. The last layer was a single subcuticular layer with 4- 0 Vicryl suture. Half inch Steri-Strips and a small dressing were then applied to the wound. The patient tolerated the procedure well and was returned to the recovery room in stable condition with stable vital signs. DEVICE INFORMATION: ARIK XT [id number] RA LEAD: [id number] RV LEAD: [id number] IMMEDIATE POSTOPERATIVE DEVICE INTERROGATION: Atrial lead bipolar, threshold 0.4 ms at 1.75 V, impedance 418, P wave 3.3 mV Ventricular lead bipolar, threshold 0.4 ms at 0.875 V, impedance 722, R wave 11.1 mV PLAN: The patient transferred to the ICU. We will continue with two more doses of IV antibiotics. We will check a chest x-ray and interrogate the device in the morning. The patient will continue on oral antibiotics for 5 days. CONCLUSION: Successful implantation of dual-chamber pacemaker with no complication FINAL DIAGNOSIS: Sinus node dysfunction Paroxysmal atrial fibrillation Hypertension Hyperlipidemia CHRISTOPHE BAUTISTA MD Mar 05, 2021 13:37
[2021-03-05] MEDS ORDERED: CEFU500T63 PO (16:09)
--- NOTE | 2021-03-05 16:09 | Discharge Inst-Post CATH ---
Discharge Inst-CATH/EP Problems Reviewed?: Yes Post Cardiac Cath/EP D/C Inst Follow Up/Plan Appointment with Dr. Bautista's office in 1 to 2 weeks <b>CARDIAC CATH/EP PROCEDURE DISCHARGE INSTRUCTIONS</b> ACTIVITY * Go Home directly and rest. * Limit activity of the leg (or wrist if it was used) for 7 days including aer obics, swimming, jogging, bicycling, etc. * Restrict stair-climbing for 7 days if possible, if not, climb up with your non-cath leg, then bring together on the same step. * Avoid lifting, pushing, pulling or excessive movement of the affected extremi ty for 7 days. * Customary sexual activity may be resumed after 2 days-use caution not to use a position that strains or causes pain to the affected extremity. * No driving for 24 hours. * NO SMOKING. * Avoid straining for bowel movements for 7 days. * Gentle walking on level ground is allowed. * Returning to work will depend on the type of procedure and the results. Your doctor will discuss this with you. CALL YOUR DOCTOR FOR ANY OF THE FOLLOWING: *If bleeding from the puncture site occurs- Apply gentle pressure to site with clean cloth and call your doctor or EMS. * If a knot or lump forms under the skin, increases in size, or causes pain. * If bruising appears to be worsening or moving further down your leg instead of disappearing. * Temperature above 101 F. CARE OF YOUR GROIN INCISION; * Bruising or purple discoloration of the skin near the puncture site is common. * You may shower only, no bathtub bathing for 5 days. Be careful to avoid slipping as your leg may feel stiff. * If a closure device was used on your femoral artery, please see the attached guide regarding care of the device and your leg. * Leave dressing on FOR 24 hours. CARE OF YOUR WRIST INCISION; * Bruising or purple discoloration of the skin near the puncture site is common. * You may shower. * DO NOT submerge wrist. * Leave dressing on FOR 24 hours. CHRISTOPHE BAUTISTA MD Mar 05, 2021 16:09
[2021-03-05] MEDS ORDERED: NON-FORMULARY MEDICATION 1 EA EA (Fluticasone Propionate (Flonase Allergy Relief) 2 SPRAY) NS PRN (16:15)
[2021-03-05] MEDS ORDERED: FLUTICASONE NASAL SPRAY (FLONASE) 16 GM BTL NS PRN (16:30)
--- NOTE | 2021-03-05 17:22 | Diagnostic Imaging Report ---
INDICATION: Arrhythmia. EXAMINATION: Portable chest at 2:56 p.m. FINDINGS: There is a dual-chamber pacemaker. There is a loop recorder projecting over the left mid chest. Heart size and pulmonary vascularity are normal. Lungs are clear. There is no effusion or pneumothorax. IMPRESSION: No acute abnormality in the chest. Dictated by: Dictated on workstation # [id number]
[2021-03-05] MEDS ORDERED: ceFAZolin INJECTION 1,000 MG in WATER (STERILE) FOR INJECTION 10 ML IV SCH (20:00)
[2021-03-05] MEDS ORDERED: LORATADINE (CLARITIN) 10 MG TAB PO SCH (21:00)
[2021-03-05] MEDS ORDERED: DPA PO SCH (21:00)
[2021-03-05] MEDS ORDERED: ROSUVASTATIN 5 MG (CRESTOR) TABLET PO SCH (21:00)
[2021-03-05] MEDS ORDERED: DHA PO SCH (21:00)
[2021-03-05] MEDS ORDERED: FISH OIL PO SCH (21:00)
[2021-03-05] MEDS ORDERED: NON-FORMULARY MEDICATION 1 EA EA (Cetirizine HCl 10 MG) PO SCH (21:00)
[2021-03-05] MEDS ORDERED: EPA PO SCH (21:00)
[2021-03-05] MEDS ORDERED: FLECAINIDE 100 MG (TAMBOCOR) TAB PO SCH (21:00)
[2021-03-05] MEDS ORDERED: OMEGA 3 (FISH OIL) 1000 MG CAP PO SCH (21:00)
[2021-03-05] MEDS ORDERED: [UNRECOGNIZED DRUG - OTHER] PO SCH (21:00)
[2021-03-05] MEDS ORDERED: OMEGA PO SCH (21:00)
[2021-03-05] MEDS ORDERED: MONTELUKAST 10 MG (SINGULAIR) TAB PO SCH (21:00)
[2021-03-06] MEDS ORDERED: FINASTERIDE (PROSCAR) 5 MG TAB PO SCH (09:00)
[2021-03-06] MEDS ORDERED: CHLORTHALIDONE 25 MG (HYGROTON) TABLET PO SCH (09:00)
[2021-03-06] MEDS ORDERED: LOSARTAN 100 MG (COZAAR) TABLET PO SCH (09:00)
== END 2021-03-05 18:42 | disposition home or self-care (01) ==
LOC: CATH 09:44 → CSD 14:05 → CATH 18:42
PROVIDERS: ATTEND Internal Medicine Cardiovascular Disease
DX: I48.0 Paroxysmal atrial fibrillation (principal); I49.5 Sick sinus syndrome; I10 Essential (primary) hypertension; E78.2 Mixed hyperlipidemia; G47.10 Hypersomnia, unspecified; G47.33 Obstructive sleep apnea (adult) (pediatric); Z79.51 Long term (current) use of inhaled steroids; Z79.01 Long term (current) use of anticoagulants; Z79.899 Other long term (current) drug therapy; Z88.2 Allergy status to sulfonamides; Z87.891 Personal history of nicotine dependence; Z83.3 Family history of diabetes mellitus
CPT/HCPCS: 33208; 71045; 80053; 80061; 85027; 85610; 85730; 87081; 93005; C1785; C1898 ×2; 36415

== ENCOUNTER → 2021-06-23 | Outpatient (CLI) | payer MEDICARE, OTHER ==
[~2021-06-23] MED LIST changes: +ALBU18HF2 INH; +APIX5TAB PO; +BIOT50002 SL; +CATHETER FLUSH 10 ML SYR IV PRN; +CEFU500T63 PO; +CETI10TA17 PO; +FLEC100T PO; +FLUT9.9S NS; +HOLD METFORMIN - RECEIVED CONTRAST 20 ML VIAL IV SCH; +IOHEXOL 350 MG/ML 100 ML (OMNIPAQUE 350) VIAL IV ONE; +MONT10TA32 PO; +NS 100 ML (IVPB) BAG IV ONE; +OMEG-86 PO; +ROSU5TAB13 PO
[2021-06-23 08:13] LABS: CREATININE SERUM 0.94 MG/DL (0.60-1.30)
--- NOTE | 2021-06-23 09:34 | Diagnostic Imaging Report ---
INDICATION: Carotid stenosis. FINDINGS: Soft plaque circumferentially results in about 70% stenosis of the proximal right subclavian artery. There are scattered calcified plaques about the bilateral cervical vertebral arteries, the left dominant, the right small. The intrathecal vertebral arteries and the visualized KILN TRANSFER OPERATOR segments unremarkable. Common carotid origins widely patent. There are left greater than right mixed calcified and noncalcified plaques, the carotid bulbs without hemodynamic significant stenosis. Plaque extends into the proximal cervical internal carotids bilaterally without significant stenosis. The intracranial ICAs were patent. The A1 segments patent. The paired anterior cerebral arteries and visualized portions of the bilateral middle cerebral arterial segments unremarkable. IMPRESSION: 1. Moderate stenosis, right subclavian takeoff prevertebral with the left vertebral dominant, the right small throughout with multiple scattered calcified plaques in the right greater than left cervical vertebrals. 2. Left greater than right carotid bifurcation plaques but no significant carotid stenosis. 3. The visualized intracranial arterial structures appeared unremarkable. Dictated by: Dictated on workstation # [id number]
== END ==
LOC: RAD 08:45
PROVIDERS: ATTEND Physician Assistant
DX: I65.23 Occlusion and stenosis of bilateral carotid arteries (principal)
CPT/HCPCS: 36415; 70498; 82565; 84520

== ENCOUNTER → 2021-08-11 | Outpatient (CLI) | payer MEDICARE, OTHER ==
[~2021-08-11] MED LIST changes: -CATHETER FLUSH 10 ML SYR IV PRN; -HOLD METFORMIN - RECEIVED CONTRAST 20 ML VIAL IV SCH; -IOHEXOL 350 MG/ML 100 ML (OMNIPAQUE 350) VIAL IV ONE; -NS 100 ML (IVPB) BAG IV ONE
== END ==
LOC: CARD 09:00
PROVIDERS: ATTEND Internal Medicine Cardiovascular Disease
DX: I08.3 Combined rheumatic disorders of mitral, aortic and tricuspid valves (principal); I10 Essential (primary) hypertension; I25.10 Atherosclerotic heart disease of native coronary artery without angina pectoris
CPT/HCPCS: 93306

== ENCOUNTER → 2022-06-23 | Outpatient (CLI) | payer MEDICARE, OTHER ==
[~2022-06-23] MED LIST changes: +MONT-40 PO; -MONT10TA32 PO
[2022-06-23 11:17] LABS: ALBUMIN 4.2 GM/DL (3.2-4.5); POTASSIUM 3.9 MMOL/L (3.6-5.0)
[2022-06-23 11:18] LABS: CALCIUM 9.1 MG/DL (8.5-10.1)
[2022-06-23 11:20] LABS: TOTAL PROTEIN 7.1 GM/DL (6.4-8.2)
[2022-06-23 11:22] LABS: BILIRUBIN,TOTAL 0.6 MG/DL (0.1-1.0)
[2022-06-23 11:23] LABS: CREATININE SERUM 1.16 MG/DL (0.60-1.30)
== END ==
LOC: LAB 10:38
PROVIDERS: ATTEND Internal Medicine Cardiovascular Disease
DX: E78.2 Mixed hyperlipidemia (principal)
CPT/HCPCS: 36415; 80053; 80061

== ENCOUNTER → 2023-02-05 | Outpatient (CLI) | payer MEDICARE, OTHER | LOC: CARD 12:00 | PROVIDERS: ATTEND Internal Medicine Cardiovascular Disease | DX: I11.9 Hypertensive heart disease without heart failure (principal); I35.1 Nonrheumatic aortic (valve) insufficiency | CPT/HCPCS: 93306 ==

== ENCOUNTER → 2023-03-10 | Outpatient (CLI) | payer MEDICARE, OTHER ==
[~2023-03-10] MED LIST changes: +CATHETER FLUSH 10 ML SYR IVP PRN; +DULO30CA49 PO; +ESOM20CA PO; +MTP25TSR PO; +REGADENOSON 0.4 MG/5 ML SYR (LEXISCAN) IV ONE; +TIOT18CA2 IH
[2023-03-10 13:39] VITALS: BP 178/94
[2023-03-10 13:48] VITALS: BP 209/96
--- NOTE | 2023-03-10 15:26 | Cardiology Stress Test Report ---
Stress Test Report Date of Procedure/Referring: Date of Procedure: Mar 10, 2023 PCP No,Local Physician Admitting Physician Admitting Physician: Attending Physician: Giselle Ward Baseline Heart Rate: 63 Baseline Blood Pressure: Blood Pressure Systolic: 209 Blood Pressure Diastolic: 96 Baseline Vitals Vital Signs Date Time Temp Pulse Resp B/P (MAP) Pulse Ox O2 Delivery O2 Flow Rate FiO2 03/10/23 13:39 63 178/94 (122) Baseline EKG: Baseline EKG: NSR Summary After explaining the procedure to the patient, he signed a consent and then brought to the stress nuclear laboratory. Patient received 0.4 mg Lexiscan for stress test, ECG, heart rate and blood pressure were monitored continuously. Resting and stress dose of radio tracer were injected, imaging was acquired and reviewed in short axis, horizontal long axis and vertical long axis views. TID: 1 SSS: 10 SDS: 7 EF: 53 Patient was unable to exercise beyond 3 minutes on standard Tee protocol, 4.6 METS. Achieving 76% of maximal expected heart rate. Patient was hypoxemic after 3 minutes of exercise with oxygen saturation 89%, test converted to Lexiscan Myoview stress test Baseline EKG abnormality with T wave inversion involving leads II, III, aVF, V3, V4, V5 and V6 persisted during test. Baseline hypertension persisted during test Diaphragmatic attenuation with reversible ischemia involving the inferior wall and inferolateral wall Normal left ventricular size, ejection fraction 53% CHRISTOPHE ANGULO MD Mar 10, 2023 15:26
== END ==
LOC: CARD 11:34
PROVIDERS: ATTEND Physician Assistant
DX: I10 Essential (primary) hypertension (principal); J98.6 Disorders of diaphragm; I25.89 Other forms of chronic ischemic heart disease; R09.02 Hypoxemia
CPT/HCPCS: 78452; 93017; A9502

== ENCOUNTER 2023-03-12 10:35 | Day surgery (SDC) | payer MEDICARE, OTHER ==
[2023-03-12] VITALS (7 sets, daily range): BP systolic 119–173; BP diastolic 78–103
[~2023-03-12] VITALS: Ht 180.3 cm; Wt 90.0 kg
[~2023-03-12 10:35] MED LIST changes: -CATHETER FLUSH 10 ML SYR IVP PRN; -DULO30CA49 PO; -ESOM20CA PO; -MTP25TSR PO; -REGADENOSON 0.4 MG/5 ML SYR (LEXISCAN) IV ONE; -TIOT18CA2 IH
[2023-03-12] MEDS ORDERED: LIDOCAINE 1% INJ 20 ML VIAL ONE (10:42)
[2023-03-12] MEDS ORDERED: NS IV 1000 ML 1,000 ML ONE (10:43)
[2023-03-12] MEDS ORDERED: HEParin (CATH LAB) 2,000 ML IV ONE (10:43)
[2023-03-12] MEDS ORDERED: NS IV 1000 ML 1,000 ML IV SCH ×2 (10:45→11:45)
[2023-03-12 11:02] LABS: HEMATOCRIT 39 % (40-54); HEMOGLOBIN 13.2 g/dL (13.3-17.7); MEAN CORPUSCULAR HEMOGLOBIN 29 pg (25-34); MEAN CORPUSCULAR HGB CONC 34 g/dL (32-36); MEAN CORPUSCULAR VOLUME 85 fL (80-99); MEAN PLATELET VOLUME 10.1 fL (9.0-12.2); PLATELET COUNT 320 10^3/uL (130-400); WHITE BLOOD COUNT 8.6 10^3/uL (4.3-11.0)
[2023-03-12] MEDS ORDERED: ESOM20CA PO (11:08)
[2023-03-12] MEDS ORDERED: MTP25TSR PO (11:08)
[2023-03-12] MEDS ORDERED: DULO30CA49 PO (11:08)
[2023-03-12] MEDS ORDERED: TIOT18CA2 IH (11:08)
[2023-03-12] MEDS ORDERED: FLEC100T PO (11:08)
[2023-03-12] MEDS ORDERED: MIDAZOLAM 5 MG/5 ML (VERSED) VIAL ONE (11:12)
[2023-03-12] MEDS ORDERED: HEParin 1000 UNIT/ML (10ML VIAL) FOR BOLUS ONE (11:12)
[2023-03-12] MEDS ORDERED: fentaNYL INJ 100 MCG/2 ML AMP ONE (11:12)
[2023-03-12] MEDS ORDERED: VERAPAMIL 5 MG/2 ML (CALAN) VIAL IV ONE (11:12)
[2023-03-12] MEDS ORDERED: NITRO DRIP 25000 MCG/D5W 250 ML IV ONE (11:13)
[2023-03-12 11:16] LABS: INR 1.1 (0.8-1.4); PROTHROMBIN TIME PATIENT 14.6 SEC (12.2-14.7)
[2023-03-12 11:21] LABS: ALBUMIN 4.5 GM/DL (3.2-4.5); POTASSIUM 4.1 MMOL/L (3.6-5.0)
[2023-03-12 11:22] LABS: CALCIUM 9.3 MG/DL (8.5-10.1)
[2023-03-12 11:23] LABS: TOTAL PROTEIN 8.2 GM/DL (6.4-8.2)
[2023-03-12 11:25] LABS: BILIRUBIN,TOTAL 0.7 MG/DL (0.1-1.0)
[2023-03-12 11:27] LABS: CREATININE SERUM 1.9 MG/DL (0.60-1.30)
--- NOTE | 2023-03-12 11:45 | Discharge Inst-Post CATH ---
Discharge Inst-CATH/EP Problems Reviewed?: Yes Post Cardiac Cath/EP D/C Inst Follow Up/Plan Appointment with Dr. Bautista's office in 2 to 4 weeks <b>CARDIAC CATH/EP PROCEDURE DISCHARGE INSTRUCTIONS</b> ACTIVITY * Go Home directly and rest. * Limit activity of the leg (or wrist if it was used) for 7 days including aer obics, swimming, jogging, bicycling, etc. * Restrict stair-climbing for 7 days if possible, if not, climb up with your non-cath leg, then bring together on the same step. * Avoid lifting, pushing, pulling or excessive movement of the affected extremi ty for 7 days. * Customary sexual activity may be resumed after 2 days-use caution not to use a position that strains or causes pain to the affected extremity. * No driving for 24 hours. * NO SMOKING. * Avoid straining for bowel movements for 7 days. * Gentle walking on level ground is allowed. * Returning to work will depend on the type of procedure and the results. Your doctor will discuss this with you. CALL YOUR DOCTOR FOR ANY OF THE FOLLOWING: *If bleeding from the puncture site occurs- Apply gentle pressure to site with clean cloth and call your doctor or EMS. * If a knot or lump forms under the skin, increases in size, or causes pain. * If bruising appears to be worsening or moving further down your leg instead of disappearing. * Temperature above 101 F. CARE OF YOUR GROIN INCISION; * Bruising or purple discoloration of the skin near the puncture site is common. * You may shower only, no bathtub bathing for 5 days. Be careful to avoid slipping as your leg may feel stiff. * If a closure device was used on your femoral artery, please see the attached guide regarding care of the device and your leg. * Leave dressing on FOR 24 hours. CARE OF YOUR WRIST INCISION; * Bruising or purple discoloration of the skin near the puncture site is common. * You may shower. * DO NOT submerge wrist. * Leave dressing on FOR 24 hours. CHRISTOPHE BAUTISTA MD Mar 12, 2023 11:44
--- NOTE | 2023-03-12 11:48 | Cardiac Cath Report ---
Cardiac Cath Report Physician (s)/Court Worker (s) Physician CHRISTOPHE ANGULO MD Pre-Procedure Diagnosis Pre-Procedure Diagnosis: Coronary artery disease Post-Procedure Note Procedure Start Date: Mar 12, 2023 Name of Procedure: Left heart catheterization Findings/Procedure Note PROCEDURE NOTE: 72-year-old gentleman with paroxysmal atrial fibrillation, has been having chest pain, increasing dyspnea on exertion, had an abnormal stress test and EKG changes, seen in the office today and was sent for urgent cardiac catheterization. After explaining the procedure to the patient, all pros and cons were explained, all questions were answered. The patient signed the consent and then he was placed in the cardiac catheterization laboratory. Groin was prepped in SL fashion local anesthesia was used. Sheath placed in the right radial artery, Bronson catheter was used, I had to use baby J-wire through the brachiocephalic artery due to tortuosity. Engage the left system and angiogram was done then exchanged to a Latrell right catheter crossed over to the left ventricular cavity and pressure was measured, pullback LV to aorta was done then engaged the right coronary artery and angiogram was done. At the end of the procedure the sheath was removed. Vascular band was used FINDINGS: Hemodynamics LV 133/15, end-diastolic pressure of 15 Aorta 127/70, mean of 94 ANATOMY: Left Main is free of obstructive disease Left Anterior Descending has about 30% stenosis in the mid LAD nonobstructive disease Left Circumflex is moderate in size with no obstructive disease Right Coronary Artery is large dominant artery with slow flow due to small vessel disease otherwise no obstructive disease LV Gram was not done, pressure was measured CONCLUSION: Dominant right coronary system with slow flow due to small vessel disease nonobstructive disease Otherwise no significant obstructive disease Normal left ventricular end-diastolic pressure DISCUSSION AND RECOMMENDATION: I used a limited amount of contrast, there is no significant obstructive disease, I noticed some prominence of the aortic root and ascending aorta. I decided to evaluate CT of the chest without contrast. Evaluate for other causes for dyspnea Anesthesia Type: Conscious Sedation Estimated blood loss (mL): 15 ml Contrast Amount: 25 ml Total Radiation Dose: 265 mGy Post-Procedure Diagnosis Post-operative diagnosis: Chest pain Shortness of breath Paroxysmal atrial fibrillation Coronary artery disease CHRISTOPHE ANGULO MD Mar 12, 2023 11:48
--- NOTE | 2023-03-12 11:51 | Diagnostic Imaging Report ---
INDICATION: Chest pain. Frontal chest obtained at 10:51 a.m. and compared with 03/05/2021 FINDINGS: Heart and mediastinal silhouette are normal in appearance. Lungs are clear. There is no pneumothorax or pleural fluid. Pacemaker is unchanged. IMPRESSION: Negative chest. Dictated by: Dictated on workstation # [id number]
--- NOTE | 2023-03-12 15:57 | Diagnostic Imaging Report ---
INDICATION: Thoracic aortic aneurysm. TECHNIQUE: Multiple contiguous axial images were obtained through the chest without the use of intravenous contrast. Auto Exposure Controls were utilized during the CT exam to meet ALARA standards for radiation dose reduction. COMPARISON made with 10/14/2020 Pacemaker is noted in place, new compared to the prior study, with right atrial and right ventricular leads. There is cardiomegaly. There are coronary artery calcifications. There are no enlarged mediastinal or hilar nodes. There are no enlarged axillary nodes or chest wall masses. The ascending aorta is aneurysmal measuring 4.6 cm in diameter. This compares to a prior measurement of 4.4 cm. The aortic arch measured 3.3 cm. Descending aorta was nonaneurysmal measuring 3.0 cm. There is no pleural or pericardial fluid. Visualized portions of the upper abdomen show no acute finding. There is subacute right-sided rib fracture involving the 7th rib. Lung parenchymal windows demonstrate dependent atelectatic changes in the lung bases. There is no consolidation or pulmonary mass. IMPRESSION: Ascending aorta is mildly aneurysmal measuring 4.6 cm. This has slightly increased compared to 10/14/2020. There is cardiomegaly with coronary calcifications. There is a new pacemaker device in place compared to the prior study. There is dependent atelectatic change in the lung bases. A subacute right-sided rib fracture is incidentally noted. Dictated by: Dictated on workstation # [id number]
--- NOTE | 2023-03-22 13:47 | Conscious Sedation/ASA ---
03/22/23 1347: Moderate Sedation PreProcedure ASA Score Airway Lungs Heart ASA score ASA 1: a normal healthy patient ASA 2: a patient with a mild systemic disease (mid diabetes, controlled hypertension, obesity ASA 3: a patient with a severe systemic disease that limits activity (angina, COPD, prior Myocardial infarction) ASA 4: a patient with an incapacitating disease that is a constant threat to life (CHF, renal failure) ASA 5: a moribund patient not expected to survive 24 hrs. (ruptured aneurysm) ASA 6: a declared brain- patient whose organs are being harvested. For emergent operations, add the letter E after the classification Sedation Plan The patient is an appropriate candidate to undergo the planned procedure, sedation, and anesthesia. The patient immediately re-assessed prior to indication. CHRISTOPHE ANGULO MD 03/23/23 0620: Moderate Sedation PreProcedure Time 06:19 ASA Score 3 Mallampati Classification Grade 3 Sedation Plan Analgesia, Amnesia, Plan communicated to team members, Discussed options with patient/fam, Discussed risks with patient/fam March 22, 2023 13:47 CHRISTOPHE ANGULO MD March 23, 2023 06:20
== END 2023-03-12 15:03 | disposition home or self-care (01) ==
LOC: CATH 10:35 → ICU 12:00 → CATH 15:03
PROVIDERS: ATTEND Internal Medicine Cardiovascular Disease
DX: I25.10 Atherosclerotic heart disease of native coronary artery without angina pectoris (principal); I48.0 Paroxysmal atrial fibrillation; I27.20 Pulmonary hypertension, unspecified; I10 Essential (primary) hypertension; I65.23 Occlusion and stenosis of bilateral carotid arteries; E78.2 Mixed hyperlipidemia; G47.33 Obstructive sleep apnea (adult) (pediatric); Z95.0 Presence of cardiac pacemaker; Z79.01 Long term (current) use of anticoagulants; Z87.891 Personal history of nicotine dependence
CPT/HCPCS: 71045; 71250; 80053; 80061; 85027; 85610; 85730; 87081; 93458; C1769; C1894; 36415